=== PATIENT | female | born 1990 | race Caucasian/White ===

== ENCOUNTER 2021-10-21 11:14 | Emergency (ER) | payer OTHER ==
[2021-10-21] MEDS ORDERED: HYDROCODON-ACE1 EAC4 PO (15:04)
== END 2021-10-21 15:29 | disposition home or self-care (01) ==
LOC: ER1 11:14
DX: S60.221A Contusion of right hand, initial encounter (principal); V86.69XA Passenger of other special all-terrain or other off-road motor vehicle injured in nontraffic accident, initial encounter
CPT/HCPCS: 71045; 73110; 73130; 73200; 73552; 73560; 96374; 96375; 99284; J1885; J2270; J2405